=== PATIENT | male | born 1960 | race Caucasian/White ===

== ENCOUNTER 2023-10-26 15:51 | Inpatient (IN) ==
[2023-10-26] MEDS: Iodixanol (CONTRAST) 320 MG/ML 100 ML SDV IV ONE (16:14)
[2023-10-26 16:24] LABS: ABS Basophils 0.1 10^3/uL (0.0-0.1); ABS Monocytes 0.8 10^3/uL (0.0-1.1); ABS Neutrophils 8.5 10^3/uL (1.5-7.6); ABS Nucleated RBC 0.01 10^3/ul; Eosinophil % 0.3 %; Hematocrit 37.5 % (38-53); Hemoglobin 11.2 g/dL (13.2-16.3); Lymphocyte % 9.2 %; Mean Corpuscular Hemoglobin 20.3 pg (27-33); Mean Corpuscular Hgb Conc 29.8 g/dL (31-36); Mean Corpuscular Volume 68.2 fL (80-97); Mean Platelet Volume 8.5 fL (7.5-11.2); Platelet Count 455 10^3/uL (150-450); Red Cell Distribution Width 18.7 % (12-17); White Blood Count 10.4 10^3/uL (3.6-10.2)
[2023-10-26 16:31] LABS: Activated Partial Thrombo Time 30.2 seconds (26.0-38.0); INR 1.25 (0.83-1.13)
[2023-10-26 16:45] LABS: Albumin 4.6 g/dL (3.2-5.2); Albumin/Globulin Ratio 1.5 (1-3); Creatinine, Serum 1.62 mg/dL (0.67-1.17); Direct Bilirubin 0.2 mg/dL (0.03-0.18); Globulin 3.1 g/dL (2-4); HDL Cholesterol 56.8 mg/dL; Indirect Bilirubin 0.6 mg/dL (0.3-1.0); Potassium 4.8 mmol/L (3.5-5.0); Total Bilirubin 0.8 mg/dL (0.2-1.0); Total Protein 7.7 g/dL (6.4-8.9); eGFR CKD-EPI 47.1 (>60)
[2023-10-26] MEDS: Lactated Ringers 1000 ml BAG 1,000 ML IV ONE (16:56)
[2023-10-26 17:23] LABS: Urine Appearance Turbid; Urine Bilirubin Negative (Negative); Urine Blood 3+ (Negative); Urine Color Yellow; Urine Glucose Negative (Negative); Urine Ketones 2+ (Negative); Urine Nitrite Negative (Negative); Urine Protein 1+ (>=30 mg/dL) (Negative); Urine Specific Gravity 1.024 (1.002-1.030); Urine Urobilinogen Negative (Negative)
[2023-10-26 17:28] LABS: Urine Bacteria Absent /HPF (Absent); Urine Red Blood Cell 3+(>10/hpf) /HPF (0-Trace); Urine Squamous Epithelial Cell Present /HPF (Absent); Urine White Blood Cell Absent /HPF (0-Trace)
[2023-10-26] MEDS ORDERED: Lorazepam PYXIS KEY PRN (17:34)
[2023-10-26] MEDS: LORazepam 2 mg VIAL 1 ml IV PUSH ONE (17:39)
[2023-10-26] MEDS: Enoxaparin 40 MG/0.4 ML SYR SUBCUT SCH (20:23)
[2023-10-26] MEDS: Lactated Ringers 1000 ml BAG 1,000 ML IV SCH (21:50)
[2023-10-27 11:55] LABS: % Iron Saturation 4 % (15-55); .Transferrin 328 mg/dL (203-362); ALT 20 U/L (7-52); AST 24 U/L (13-39); Albumin/Globulin Ratio 1.6 (1-3); Alkaline Phosphatase 92 U/L (35-149); Anion Gap 14 mmol/L (2-16); Blood Urea Nitrogen 34 mg/dL (6-24); CO2 Carbon Dioxide 24 mmol/L (22-32); Calcium 9.2 mg/dL (8.6-10.3); Chloride 110 mmol/L (101-111); Creatinine, Serum 1.21 mg/dL (0.67-1.17); Globulin 2.5 g/dL (2-4); Glucose 82 mg/dL (70-100); Iron < 20 ug/dL (50-212); Magnesium 2.2 mg/dL (1.9-2.7); Potassium 4.4 mmol/L (3.5-5.0); Sodium 148 mmol/L (135-145); Total Bilirubin 0.8 mg/dL (0.2-1.0); Total Iron Binding Capacity 459 mcg/dL (250-450); Total Protein 6.5 g/dL (6.4-8.9); Unsaturated Iron Binding 439 ug/dL; eGFR CKD-EPI 66.9 (>60)
[2023-10-27 12:04] LABS: Hematocrit 37.8 % (38-53); Hemoglobin 10.7 g/dL (13.2-16.3); Mean Corpuscular Hemoglobin 20.4 pg (27-33); Mean Corpuscular Hgb Conc 28.3 g/dL (31-36); Mean Platelet Volume 8.6 fL (7.5-11.2); Platelet Count 340 10^3/uL (150-450); Red Blood Count 5.25 10^6/uL (4.06-5.63); Red Cell Distribution Width 18.9 % (12-17); White Blood Count 8.1 10^3/uL (3.6-10.2)
[2023-10-27 12:24] LABS: ABS Basophils 0.1 10^3/uL (0.0-0.1); ABS Eosinophils 0.1 10^3/uL (0.0-0.5); ABS Lymphocytes 1.3 10^3/uL (1.0-4.8); ABS Neutrophils 5.7 10^3/uL (1.5-7.6); Hypochromasia 3+; Microcytosis 2+
[2023-10-27] MEDS: Furosemide 20 mg/2 ml IV VIAL IV SLOW PU ONE (12:38)
[2023-10-27] MEDS ORDERED: Sulfur Hexaflouride MICROSPHR 25 MG VIAL ONE (13:14)
[2023-10-27 19:00] LABS: ABS Basophils 0.1 10^3/uL (0.0-0.1); ABS Lymphocytes 0.6 10^3/uL (1.0-4.8); ABS Monocytes 0.9 10^3/uL (0.0-1.1); ABS Neutrophils 8.4 10^3/uL (1.5-7.6); ABS Nucleated RBC 0.01 10^3/ul; Eosinophil % 0.4 %; Hematocrit 33.3 % (38-53); Hemoglobin 10.2 g/dL (13.2-16.3); Lymphocyte % 5.5 %; Mean Corpuscular Hemoglobin 20.6 pg (27-33); Mean Corpuscular Hgb Conc 30.6 g/dL (31-36); Mean Corpuscular Volume 67.3 fL (80-97); Mean Platelet Volume 8.5 fL (7.5-11.2); Nucleated Red Blood Cells % 0.1 %/100WBC (0.0-0.8); Platelet Count 403 10^3/uL (150-450); Red Blood Count 4.95 10^6/uL (4.06-5.63); Red Cell Distribution Width 18.4 % (12-17)
[2023-10-27 19:30] LABS: Creatinine, Serum 1.27 mg/dL (0.67-1.17); eGFR CKD-EPI 63.1 (>60)
[2023-10-27] MEDS: Heparin DRIP 25,000 UNITS BAG 25,000 UNITS/250 ML BAG IV SCH (20:16)
[2023-10-28 02:16] LABS: Hematocrit 34.9 % (38-53); Hemoglobin 10.8 g/dL (13.2-16.3)
[2023-10-28] MEDS: Morphine 2 MG/ML SYRINGE IV ONE (02:17)
[2023-10-28] MEDS: Heparin 5000 UNITS/ML 1 mL VIAL IV SCH (03:13)
[2023-10-28 06:34] LABS: ABS Basophils 0.1 10^3/uL (0.0-0.1); ABS Eosinophils 0.1 10^3/uL (0.0-0.5); ABS Lymphocytes 1.1 10^3/uL (1.0-4.8); ABS Monocytes 1.5 10^3/uL (0.0-1.1); ABS Neutrophils 9.5 10^3/uL (1.5-7.6); ABS Nucleated RBC 0.01 10^3/ul; Eosinophil % 0.4 %; Hematocrit 34.7 % (38-53); Hemoglobin 10.4 g/dL (13.2-16.3); Lymphocyte % 9.1 %; Mean Corpuscular Hemoglobin 20.3 pg (27-33); Mean Corpuscular Hgb Conc 29.9 g/dL (31-36); Mean Corpuscular Volume 67.9 fL (80-97); Mean Platelet Volume 8.6 fL (7.5-11.2); Nucleated Red Blood Cells % 0.1 %/100WBC (0.0-0.8); Platelet Count 375 10^3/uL (150-450); Red Cell Distribution Width 18.4 % (12-17); White Blood Count 12.2 10^3/uL (3.6-10.2)
[2023-10-28 07:11] LABS: Calcium 9.1 mg/dL (8.6-10.3); Creatinine, Serum 1.28 mg/dL (0.67-1.17); Magnesium 2.2 mg/dL (1.9-2.7); eGFR CKD-EPI 62.5 (>60)
[2023-10-28 10:33] LABS: Urine Appearance Turbid; Urine Bacteria Absent /HPF (Absent); Urine Bilirubin Negative (Negative); Urine Glucose Negative (Negative); Urine Ketones 2+ (Negative); Urine Nitrite Negative (Negative); Urine Protein 2+ (>=100 mg/dL) (Negative); Urine Red Blood Cell 3+(>10/hpf) /HPF (0-Trace); Urine Specific Gravity >1.050 (1.002-1.030); Urine Urobilinogen Negative (Negative); Urine White Blood Cell 3+(>20/hpf) /HPF (0-Trace)
[2023-10-28 10:40] LABS: Urine Color Brown
[2023-10-28] MEDS: Ferric Gluconate IV 250 MG in NS 0.9% 250 ml 200 ML IVPB ONE (14:35)
[2023-10-28] MEDS: Iohexol 300 (CONTRAST) 10 ML SDV IV ONE (14:38)
[2023-10-28] MEDS: Lidocaine 2% JELLY 6 ML Topical TOPICAL ONE (17:29)
[2023-10-29] MEDS: Morphine 2 MG/ML SYRINGE IV ONE (01:42)
[2023-10-29 06:40] LABS: Calcium 9.2 mg/dL (8.6-10.3); Creatinine, Serum 1.38 mg/dL (0.67-1.17); Phosphorus 4.2 mg/dL (2.5-5.0); eGFR CKD-EPI 57.1 (>60)
[2023-10-29 06:52] LABS: ABS Basophils 0.1 10^3/uL (0.0-0.1); ABS Eosinophils 0.1 10^3/uL (0.0-0.5); ABS Lymphocytes 1.3 10^3/uL (1.0-4.8); ABS Monocytes 1.6 10^3/uL (0.0-1.1); ABS Neutrophils 8.1 10^3/uL (1.5-7.6); ABS Nucleated RBC 0.01 10^3/ul; Anisocytosis 2+; Eosinophil % 0.6 %; Hematocrit 34.2 % (38-53); Hemoglobin 10.5 g/dL (13.2-16.3); Lymphocyte % 11.5 %; Macrocytosis 1+; Mean Corpuscular Hemoglobin 20.6 pg (27-33); Mean Corpuscular Hgb Conc 30.6 g/dL (31-36); Mean Corpuscular Volume 67.5 fL (80-97); Mean Platelet Volume 8.2 fL (7.5-11.2); Microcytosis 1+; Nucleated Red Blood Cells % 0.1 %/100WBC (0.0-0.8); Platelet Count 357 10^3/uL (150-450); Red Blood Count 5.06 10^6/uL (4.06-5.63); Red Cell Distribution Width 18.4 % (12-17); White Blood Count 11.1 10^3/uL (3.6-10.2)
[2023-10-29] MEDS: Ferric Gluconate IV 250 MG in NS 0.9% 250 ml 200 ML IVPB ONE (11:21)
[2023-10-29] MEDS: Lidocaine 2% JELLY 6 ML Topical TOPICAL ONE (15:15)
[2023-10-30 06:03] LABS: Hematocrit 35.9 % (38-53); Hemoglobin 10.4 g/dL (13.2-16.3); Mean Corpuscular Hemoglobin 20.2 pg (27-33); Mean Corpuscular Volume 69.7 fL (80-97); Mean Platelet Volume 8.9 fL (7.5-11.2); Platelet Count 345 10^3/uL (150-450); Red Blood Count 5.15 10^6/uL (4.06-5.63); Red Cell Distribution Width 18.8 % (12-17); White Blood Count 28.2 10^3/uL (3.6-10.2)
[2023-10-30 06:05] LABS: Albumin 3.6 g/dL (3.2-5.2); Albumin/Globulin Ratio 1.4 (1-3); Calcium 9.1 mg/dL (8.6-10.3); Creatinine, Serum 1.38 mg/dL (0.67-1.17); Globulin 2.5 g/dL (2-4); Magnesium 2.6 mg/dL (1.9-2.7); Potassium 3.9 mmol/L (3.5-5.0); Total Bilirubin 0.6 mg/dL (0.2-1.0); Total Protein 6.1 g/dL (6.4-8.9); eGFR CKD-EPI 57.1 (>60)
[2023-10-30 07:27] LABS: ABS Basophils 0.1 10^3/uL (0.0-0.1); ABS Lymphocytes 1.1 10^3/uL (1.0-4.8); ABS Monocytes 1.6 10^3/uL (0.0-1.1); ABS Neutrophils 25.4 10^3/uL (1.5-7.6); ABS Nucleated RBC 0.02 10^3/ul; Eosinophil % 0.1 %; Lymphocyte % 4.1 %; Nucleated Red Blood Cells % 0.1 %/100WBC (0.0-0.8)
[2023-10-30] MEDS ORDERED: Magnesium Hydroxide LIQ 30 ML UDC PO PRN (07:31)
[2023-10-30 07:56] LABS: C Reactive Protein 126.73 mg/L (<8.01)
[2023-10-30] MEDS: cefTRIAXone 1 gm/50 mL D5W 1 GM/50 ML BAG IV SCH (09:48)
[2023-10-30] MEDS: Morphine 2 MG/ML SYRINGE IV ONE (09:57)
[2023-10-30] MEDS: Magnesium Hydroxide LIQ 30 ML UDC PO SCH (10:26)
[2023-10-30] MEDS: Lactated Ringers 1000 ml BAG 1,000 ML IV SCH (10:46)
[2023-10-30] MEDS: Azithromycin 500 mg/250 ml NS 500 MG/250 ML BAG IVPB SCH (10:47)
[2023-10-30] MEDS: Polyethylene Glycol 3350 17 GM PACKET PO PRN (10:50)
[2023-10-30] MEDS: Ferric Gluconate IV 250 MG in NS 0.9% 250 ml 200 ML IVPB ONE (14:05)
[2023-10-30] MEDS: Lactulose 30 ml UDC NG TUBE ONE (14:16)
[2023-10-30] MEDS ORDERED: Ondansetron ODT 4 mg TAB 4 MG TAB SL PRN (16:16)
[2023-10-30] MEDS: Ondansetron ODT 4 mg TAB 4 MG TAB SL ONE (16:43)
[2023-10-30 17:49] LABS: Urine Appearance Extra Turbid; Urine Bilirubin Negative (Negative); Urine Blood 3+ (Negative); Urine Glucose Negative (Negative); Urine Ketones Negative (Negative); Urine Nitrite Negative (Negative); Urine Protein 1+ (>=30 mg/dL) (Negative); Urine Specific Gravity 1.029 (1.002-1.030); Urine Urobilinogen Negative (Negative); Urine pH 5.5 (5.0-8.0)
[2023-10-30 18:01] LABS: Urine Bacteria 1+ /HPF (Absent); Urine Red Blood Cell 3+(>10/hpf) /HPF (0-Trace); Urine White Blood Cell 3+(>20/hpf) /HPF (0-Trace)
[2023-10-30 19:46] LABS: Urine Color Yellow
[2023-10-30] MEDS: Magnesium Hydroxide LIQ 30 ML UDC NG TUBE SCH (21:17)
[2023-10-31 06:53] LABS: ABS Basophils 0.1 10^3/uL (0.0-0.1); ABS Eosinophils 0.7 10^3/uL (0.0-0.5); ABS Lymphocytes 1.5 10^3/uL (1.0-4.8); ABS Monocytes 1.5 10^3/uL (0.0-1.1); ABS Neutrophils 13.2 10^3/uL (1.5-7.6); ABS Nucleated RBC 0.04 10^3/ul; Eosinophil % 3.9 %; Hematocrit 31.9 % (38-53); Hemoglobin 9.4 g/dL (13.2-16.3); Lymphocyte % 9.1 %; Mean Corpuscular Hemoglobin 20.2 pg (27-33); Mean Corpuscular Hgb Conc 29.5 g/dL (31-36); Mean Corpuscular Volume 68.6 fL (80-97); Mean Platelet Volume 9.1 fL (7.5-11.2); Nucleated Red Blood Cells % 0.3 %/100WBC (0.0-0.8); Platelet Count 361 10^3/uL (150-450); Red Blood Count 4.65 10^6/uL (4.06-5.63); Red Cell Distribution Width 18.5 % (12-17)
[2023-10-31 07:03] LABS: Albumin 3.4 g/dL (3.2-5.2); Albumin/Globulin Ratio 1.5 (1-3); C Reactive Protein 138.77 mg/L (<8.01); Calcium 8.7 mg/dL (8.6-10.3); Creatinine, Serum 1.1 mg/dL (0.67-1.17); Globulin 2.3 g/dL (2-4); Magnesium 2.4 mg/dL (1.9-2.7); Potassium 4.1 mmol/L (3.5-5.0); Total Bilirubin 0.5 mg/dL (0.2-1.0); Total Protein 5.7 g/dL (6.4-8.9)
[2023-10-31] MEDS: Ferric Gluconate IV 250 MG in NS 0.9% 250 ml 200 ML IVPB ONE (14:55)
[2023-10-31] MEDS: Morphine 2 MG/ML SYRINGE IV ONE (18:44)
[2023-10-31] MEDS: Iohexol 300 (CONTRAST) 10 ML SDV IV ONE (20:50)
[2023-11-01 06:01] LABS: C Reactive Protein 76.03 mg/L (<8.01); Calcium 8.4 mg/dL (8.6-10.3); Creatinine, Serum 1.07 mg/dL (0.67-1.17); Magnesium 2.2 mg/dL (1.9-2.7); Potassium 4.1 mmol/L (3.5-5.0); eGFR CKD-EPI 77.5 (>60)
[2023-11-01 06:02] LABS: ABS Basophils 0.1 10^3/uL (0.0-0.1); ABS Eosinophils 0.4 10^3/uL (0.0-0.5); ABS Lymphocytes 1.5 10^3/uL (1.0-4.8); ABS Monocytes 1.3 10^3/uL (0.0-1.1); ABS Neutrophils 10.5 10^3/uL (1.5-7.6); ABS Nucleated RBC 0.04 10^3/ul; Eosinophil % 3.1 %; Hematocrit 33.1 % (38-53); Hemoglobin 9.9 g/dL (13.2-16.3); Mean Corpuscular Hemoglobin 20.6 pg (27-33); Mean Corpuscular Hgb Conc 29.9 g/dL (31-36); Mean Corpuscular Volume 68.9 fL (80-97); Mean Platelet Volume 9.2 fL (7.5-11.2); Nucleated Red Blood Cells % 0.3 %/100WBC (0.0-0.8); Platelet Count 346 10^3/uL (150-450); Red Cell Distribution Width 18.8 % (12-17); White Blood Count 13.8 10^3/uL (3.6-10.2)
[2023-11-02] MEDS ORDERED: Lidocaine 4% GEL 10 GM TUBE TOPICAL ONE (03:05)
[2023-11-02] MEDS: Lidocaine 2% JELLY 6 ML Topical TOPICAL ONE (07:18)
[2023-11-02 14:39] LABS: Hematocrit 34.4 % (38-53); Hemoglobin 10.3 g/dL (13.2-16.3); Mean Corpuscular Hemoglobin 21.1 pg (27-33); Mean Corpuscular Volume 70.3 fL (80-97); Mean Platelet Volume 9.4 fL (7.5-11.2); Platelet Count 366 10^3/uL (150-450); Red Blood Count 4.89 10^6/uL (4.06-5.63); Red Cell Distribution Width 18.9 % (12-17); White Blood Count 10.1 10^3/uL (3.6-10.2)
[2023-11-02 14:40] LABS: INR 1.22 (0.83-1.13)
[2023-11-02 16:30] LABS: ABS Basophils 0.1 10^3/uL (0.0-0.1); ABS Eosinophils 0.3 10^3/uL (0.0-0.5); ABS Lymphocytes 1.7 10^3/uL (1.0-4.8); ABS Monocytes 1.2 10^3/uL (0.0-1.1); ABS Neutrophils 6.8 10^3/uL (1.5-7.6); ABS Nucleated RBC 0.02 10^3/ul; Eosinophil % 3.3 %; Lymphocyte % 16.5 %; Nucleated Red Blood Cells % 0.1 %/100WBC (0.0-0.8)
[2023-11-03 06:41] LABS: Calcium 8.7 mg/dL (8.6-10.3); Creatinine, Serum 1.05 mg/dL (0.67-1.17); Magnesium 2.2 mg/dL (1.9-2.7); Potassium 4.9 mmol/L (3.5-5.0); eGFR CKD-EPI 79.3 (>60)
[2023-11-03 06:55] LABS: ABS Basophils 0.1 10^3/uL (0.0-0.1); ABS Eosinophils 0.5 10^3/uL (0.0-0.5); ABS Lymphocytes 1.4 10^3/uL (1.0-4.8); ABS Monocytes 1.3 10^3/uL (0.0-1.1); ABS Neutrophils 7.1 10^3/uL (1.5-7.6); ABS Nucleated RBC 0.02 10^3/ul; Eosinophil % 4.7 %; Hematocrit 33.5 % (38-53); Hemoglobin 10.4 g/dL (13.2-16.3); Lymphocyte % 13.1 %; Mean Corpuscular Hemoglobin 21.5 pg (27-33); Mean Corpuscular Volume 69.3 fL (80-97); Mean Platelet Volume 9.4 fL (7.5-11.2); Nucleated Red Blood Cells % 0.2 %/100WBC (0.0-0.8); Platelet Count 354 10^3/uL (150-450); Red Blood Count 4.83 10^6/uL (4.06-5.63); Red Cell Distribution Width 18.1 % (12-17); White Blood Count 10.5 10^3/uL (3.6-10.2)
[2023-11-04] MEDS: Senna TAB 8.6 mg TAB PO PRN (15:56)
[2023-11-04] MEDS: Magnesium Hydroxide LIQ 30 ML UDC NG TUBE PRN (15:56)
[2023-11-05 07:50] LABS: C Reactive Protein 9.85 mg/L (<8.01); Calcium 9.1 mg/dL (8.6-10.3); Creatinine, Serum 1.13 mg/dL (0.67-1.17); Magnesium 2.4 mg/dL (1.9-2.7); Potassium 5.2 mmol/L (3.5-5.0); eGFR CKD-EPI 72.6 (>60)
[2023-11-05 07:58] LABS: Hematocrit 37.6 % (38-53); Hemoglobin 11.4 g/dL (13.2-16.3); Mean Corpuscular Hemoglobin 21.7 pg (27-33); Mean Corpuscular Hgb Conc 30.3 g/dL (31-36); Mean Corpuscular Volume 71.5 fL (80-97); Red Blood Count 5.26 10^6/uL (4.06-5.63); Red Cell Distribution Width 18.9 % (12-17); White Blood Count 10.9 10^3/uL (3.6-10.2)
[2023-11-05 09:05] LABS: ABS Basophils 0.1 10^3/uL (0.0-0.1); ABS Eosinophils 0.3 10^3/uL (0.0-0.5); ABS Lymphocytes 1.7 10^3/uL (1.0-4.8); ABS Monocytes 1.3 10^3/uL (0.0-1.1); ABS Neutrophils 7.4 10^3/uL (1.5-7.6); ABS Nucleated RBC 0.02 10^3/ul; Lymphocyte % 15.7 %; Nucleated Red Blood Cells % 0.1 %/100WBC (0.0-0.8); Platelet Count Platelets clumped. 10^3/uL (150-450)
[2023-11-06 07:43] LABS: Calcium 8.9 mg/dL (8.6-10.3); Creatinine, Serum 1.28 mg/dL (0.67-1.17); Magnesium 2.5 mg/dL (1.9-2.7); Potassium 5.2 mmol/L (3.5-5.0); eGFR CKD-EPI 62.5 (>60)
[2023-11-06] MEDS: SODIUM ZIRCONIUM CYCLOSILICATE 5 GM PACKET PO ONE (10:17)
[2023-11-06] MEDS: SODIUM ZIRCONIUM CYCLOSILICATE 5 GM PACKET PO SCH (10:20)
[2023-11-07 05:42] LABS: Calcium 8.6 mg/dL (8.6-10.3); Creatinine, Serum 1.16 mg/dL (0.67-1.17); Magnesium 2.3 mg/dL (1.9-2.7); Phosphorus 3.7 mg/dL (2.5-5.0); Potassium 4.7 mmol/L (3.5-5.0); eGFR CKD-EPI 70.3 (>60)
[2023-11-07 05:43] LABS: ABS Basophils 0.1 10^3/uL (0.0-0.1); ABS Eosinophils 0.3 10^3/uL (0.0-0.5); ABS Lymphocytes 1.4 10^3/uL (1.0-4.8); ABS Monocytes 1.3 10^3/uL (0.0-1.1); ABS Neutrophils 6.2 10^3/uL (1.5-7.6); Eosinophil % 2.8 %; Hematocrit 34.9 % (38-53); Hemoglobin 10.9 g/dL (13.2-16.3); Lymphocyte % 15.2 %; Mean Corpuscular Hemoglobin 22.1 pg (27-33); Mean Corpuscular Hgb Conc 31.1 g/dL (31-36); Mean Corpuscular Volume 70.9 fL (80-97); Mean Platelet Volume 9.4 fL (7.5-11.2); Platelet Count 386 10^3/uL (150-450); Red Blood Count 4.92 10^6/uL (4.06-5.63); Red Cell Distribution Width 18.8 % (12-17); White Blood Count 9.4 10^3/uL (3.6-10.2)
[2023-11-08 07:45] LABS: ABS Basophils 0.1 10^3/uL (0.0-0.1); ABS Eosinophils 0.2 10^3/uL (0.0-0.5); ABS Lymphocytes 1.3 10^3/uL (1.0-4.8); ABS Monocytes 0.9 10^3/uL (0.0-1.1); ABS Neutrophils 4.4 10^3/uL (1.5-7.6); Eosinophil % 2.7 %; Hematocrit 36.1 % (38-53); Hemoglobin 11.2 g/dL (13.2-16.3); Lymphocyte % 18.8 %; Mean Corpuscular Hemoglobin 22.3 pg (27-33); Mean Corpuscular Hgb Conc 31.1 g/dL (31-36); Mean Corpuscular Volume 71.5 fL (80-97); Mean Platelet Volume 8.7 fL (7.5-11.2); Platelet Count 372 10^3/uL (150-450); Red Blood Count 5.05 10^6/uL (4.06-5.63); Red Cell Distribution Width 19.4 % (12-17); White Blood Count 6.9 10^3/uL (3.6-10.2)
[2023-11-08 08:20] LABS: Calcium 8.8 mg/dL (8.6-10.3); Creatinine, Serum 1.08 mg/dL (0.67-1.17); Magnesium 2.2 mg/dL (1.9-2.7); Potassium 4.9 mmol/L (3.5-5.0); eGFR CKD-EPI 76.6 (>60)
[2023-11-10 06:42] LABS: Hemoglobin 11.5 g/dL (13.2-16.3); Mean Corpuscular Hemoglobin 22.5 pg (27-33); Mean Corpuscular Hgb Conc 31.2 g/dL (31-36); Mean Corpuscular Volume 72.3 fL (80-97); Mean Platelet Volume 9.3 fL (7.5-11.2); Platelet Count 396 10^3/uL (150-450); Red Blood Count 5.11 10^6/uL (4.06-5.63); Red Cell Distribution Width 25.4 % (12-17); White Blood Count 7.6 10^3/uL (3.6-10.2)
[2023-11-10 06:47] LABS: Calcium 8.8 mg/dL (8.6-10.3); Creatinine, Serum 1.09 mg/dL (0.67-1.17); Magnesium 2.1 mg/dL (1.9-2.7); Potassium 4.8 mmol/L (3.5-5.0); eGFR CKD-EPI 75.8 (>60)
[2023-11-10 07:42] LABS: ABS Basophils 0.1 10^3/uL (0.0-0.1); ABS Eosinophils 0.2 10^3/uL (0.0-0.5); ABS Lymphocytes 1.5 10^3/uL (1.0-4.8); ABS Monocytes 0.9 10^3/uL (0.0-1.1); ABS Neutrophils 4.9 10^3/uL (1.5-7.6); ABS Nucleated RBC 0.01 10^3/ul; Anisocytosis 3+; Lymphocyte % 20.4 %; Nucleated Red Blood Cells % 0.2 %/100WBC (0.0-0.8)
[2023-11-11 05:52] LABS: Hematocrit 35.4 % (38-53); Hemoglobin 11.1 g/dL (13.2-16.3); Mean Corpuscular Hemoglobin 22.8 pg (27-33); Mean Corpuscular Hgb Conc 31.5 g/dL (31-36); Mean Corpuscular Volume 72.3 fL (80-97); Mean Platelet Volume 9.4 fL (7.5-11.2); Platelet Count 375 10^3/uL (150-450); Red Blood Count 4.89 10^6/uL (4.06-5.63); Red Cell Distribution Width 26.1 % (12-17); White Blood Count 7.4 10^3/uL (3.6-10.2)
[2023-11-15 10:56] LABS: Urine Appearance Turbid; Urine Bacteria Absent /HPF (Absent); Urine Bilirubin Negative (Negative); Urine Blood 3+ (Negative); Urine Color Yellow; Urine Glucose 4+ (>=1000 mg/dL) (Negative); Urine Ketones Negative (Negative); Urine Nitrite Negative (Negative); Urine Protein 1+ (>=30 mg/dL) (Negative); Urine Red Blood Cell 3+(>10/hpf) /HPF (0-Trace); Urine Specific Gravity 1.034 (1.002-1.030); Urine Urobilinogen Negative (Negative); Urine White Blood Cell 3+(>20/hpf) /HPF (0-Trace); Urine pH 5.5 (5.0-8.0)
[2023-11-15] MEDS: Furosemide 20 mg/2 ml IV VIAL IV SLOW PU ONE (13:45)
[2023-11-15] MEDS: Lactated Ringers 1000 ml BAG 500 ML IV SCH (16:29)
[2023-11-15] MEDS: Furosemide 40 mg/4 ml IV VIAL IV ONE (23:32)
[2023-11-16 06:29] LABS: Hematocrit 32.9 % (38-53); Hemoglobin 10.5 g/dL (13.2-16.3); Mean Corpuscular Hemoglobin 23.6 pg (27-33); Mean Corpuscular Hgb Conc 31.8 g/dL (31-36); Mean Corpuscular Volume 74.1 fL (80-97); Mean Platelet Volume 9.3 fL (7.5-11.2); Platelet Count 331 10^3/uL (150-450); Red Blood Count 4.44 10^6/uL (4.06-5.63); Red Cell Distribution Width 28.6 % (12-17); White Blood Count 6.7 10^3/uL (3.6-10.2)
[2023-11-16 06:46] LABS: ABS Basophils 0.1 10^3/uL (0.0-0.1); ABS Eosinophils 0.2 10^3/uL (0.0-0.5); ABS Lymphocytes 1.2 10^3/uL (1.0-4.8); ABS Monocytes 0.8 10^3/uL (0.0-1.1); ABS Neutrophils 4.3 10^3/uL (1.5-7.6); ABS Nucleated RBC 0.01 10^3/ul; Anisocytosis 2+; Eosinophil % 3.7 %; Lymphocyte % 18.4 %; Microcytosis 1+; Nucleated Red Blood Cells % 0.1 %/100WBC (0.0-0.8); Polychromasia 1+
[2023-11-16 10:08] VITALS: BP 103/57
== END 2023-11-16 13:05 | DRG 45 ==
LOC: EDHOLD 15:51 → ED 15:51 → OBSVTOIN 17:33 → SUATTDRO 17:33 → MED 10-27 09:30
PROVIDERS: ADMIT Internal Medicine; ATTEND Student in an Organized Health Care Education/Training Program

== ENCOUNTER 2023-11-16 08:22 | Inpatient (IN) ==
[2023-11-16] MEDS ORDERED: Senna TAB 8.6 mg TAB PO PRN (14:30)
[2023-11-16] MEDS ORDERED: Magnesium Hydroxide LIQ 30 ML UDC PO PRN (15:05)
[2023-11-17 06:48] LABS: Hematocrit 34.1 % (38-53); Hemoglobin 10.7 g/dL (13.2-16.3); Mean Corpuscular Hemoglobin 23.6 pg (27-33); Mean Corpuscular Hgb Conc 31.4 g/dL (31-36); Mean Corpuscular Volume 75.2 fL (80-97); Mean Platelet Volume 8.5 fL (7.5-11.2); Platelet Count 330 10^3/uL (150-450); Red Blood Count 4.54 10^6/uL (4.06-5.63); Red Cell Distribution Width 29.6 % (12-17); White Blood Count 4.6 10^3/uL (3.6-10.2)
[2023-11-17 07:33] LABS: Albumin 3.2 g/dL (3.2-5.2); Albumin/Globulin Ratio 1.5 (1-3); Calcium 8.6 mg/dL (8.6-10.3); Creatinine, Serum 1.14 mg/dL (0.67-1.17); Globulin 2.2 g/dL (2-4); Potassium 4.6 mmol/L (3.5-5.0); Total Bilirubin 0.4 mg/dL (0.2-1.0); Total Protein 5.4 g/dL (6.4-8.9); eGFR CKD-EPI 71.8 (>60)
[2023-11-17 07:40] LABS: ABS Basophils 0.1 10^3/uL (0.0-0.1); ABS Eosinophils 0.2 10^3/uL (0.0-0.5); ABS Monocytes 0.6 10^3/uL (0.0-1.1); ABS Neutrophils 2.8 10^3/uL (1.5-7.6); ABS Nucleated RBC 0.01 10^3/ul; Anisocytosis 3+; Eosinophil % 3.9 %; Lymphocyte % 22.2 %; Nucleated Red Blood Cells % 0.1 %/100WBC (0.0-0.8)
[2023-11-19] MEDS: Silver Nitrate/Potassium Nitr 1 PAK (1 PAK PER PATIENT) TOPICAL ONE (19:00)
[2023-11-21 06:34] LABS: Hematocrit 33.5 % (38-53); Hemoglobin 10.8 g/dL (13.2-16.3); Mean Corpuscular Hemoglobin 24.3 pg (27-33); Mean Corpuscular Hgb Conc 32.2 g/dL (31-36); Mean Corpuscular Volume 75.3 fL (80-97); Mean Platelet Volume 8.5 fL (7.5-11.2); Platelet Count 271 10^3/uL (150-450); Red Blood Count 4.44 10^6/uL (4.06-5.63); Red Cell Distribution Width 30.2 % (12-17); White Blood Count 7.2 10^3/uL (3.6-10.2)
[2023-11-21 08:30] LABS: ABS Basophils 0.1 10^3/uL (0.0-0.1); ABS Eosinophils 0.2 10^3/uL (0.0-0.5); ABS Lymphocytes 1.6 10^3/uL (1.0-4.8); ABS Neutrophils 4.3 10^3/uL (1.5-7.6); ABS Nucleated RBC 0.02 10^3/ul; Eosinophil % 3.3 %; Lymphocyte % 22.6 %; Nucleated Red Blood Cells % 0.2 %/100WBC (0.0-0.8)
[2023-11-21] MEDS: Bacitracin OINTMENT TUBE TOPICAL SCH (11:39)
[2023-11-21] MEDS: Pancrelipase/Bicarb NG TUBE 1 PREP/5 ML SOL NG TUBE ONE (12:37)
[2023-11-24 07:09] LABS: Albumin/Globulin Ratio 1.3 (1-3); Calcium 8.2 mg/dL (8.6-10.3); Creatinine, Serum 1.01 mg/dL (0.67-1.17); Globulin 2.4 g/dL (2-4); Potassium 4.2 mmol/L (3.5-5.0); Total Bilirubin 0.6 mg/dL (0.2-1.0); Total Protein 5.4 g/dL (6.4-8.9)
[2023-11-24 07:24] LABS: ABS Basophils 0.1 10^3/uL (0.0-0.1); ABS Eosinophils 0.1 10^3/uL (0.0-0.5); ABS Lymphocytes 1.2 10^3/uL (1.0-4.8); ABS Monocytes 1.2 10^3/uL (0.0-1.1); ABS Neutrophils 7.3 10^3/uL (1.5-7.6); ABS Nucleated RBC 0.01 10^3/ul; Anisocytosis 3+; Eosinophil % 1.2 %; Hemoglobin 10.4 g/dL (13.2-16.3); Mean Corpuscular Hemoglobin 24.6 pg (27-33); Mean Corpuscular Hgb Conc 32.5 g/dL (31-36); Mean Corpuscular Volume 75.7 fL (80-97); Mean Platelet Volume 8.8 fL (7.5-11.2); Nucleated Red Blood Cells % 0.1 %/100WBC (0.0-0.8); Platelet Count 218 10^3/uL (150-450); Red Blood Count 4.23 10^6/uL (4.06-5.63); Red Cell Distribution Width 29.5 % (12-17); White Blood Count 9.9 10^3/uL (3.6-10.2)
[2023-12-01 06:55] LABS: Hematocrit 35.5 % (38-53); Hemoglobin 11.4 g/dL (13.2-16.3); Mean Corpuscular Hemoglobin 24.5 pg (27-33); Mean Corpuscular Volume 76.6 fL (80-97); Mean Platelet Volume 7.9 fL (7.5-11.2); Platelet Count 319 10^3/uL (150-450); Red Blood Count 4.64 10^6/uL (4.06-5.63); Red Cell Distribution Width 28.8 % (12-17); White Blood Count 6.6 10^3/uL (3.6-10.2)
[2023-12-01 07:11] LABS: Albumin 3.2 g/dL (3.2-5.2); Albumin/Globulin Ratio 1.3 (1-3); Calcium 8.6 mg/dL (8.6-10.3); Creatinine, Serum 0.95 mg/dL (0.67-1.17); Globulin 2.5 g/dL (2-4); Potassium 4.3 mmol/L (3.5-5.0); Total Bilirubin 0.3 mg/dL (0.2-1.0); Total Protein 5.7 g/dL (6.4-8.9); eGFR CKD-EPI 89.4 (>60)
[2023-12-01 07:50] LABS: ABS Basophils 0.1 10^3/uL (0.0-0.1); ABS Eosinophils 0.2 10^3/uL (0.0-0.5); ABS Lymphocytes 1.5 10^3/uL (1.0-4.8); ABS Monocytes 0.7 10^3/uL (0.0-1.1); ABS Neutrophils 4.1 10^3/uL (1.5-7.6); Anisocytosis 2+; Eosinophil % 3.2 %; Lymphocyte % 22.5 %; Microcytosis 1+; Polychromasia 1+
[2023-12-08 07:01] LABS: Hematocrit 36.9 % (38-53); Hemoglobin 11.9 g/dL (13.2-16.3); Mean Corpuscular Hemoglobin 25.1 pg (27-33); Mean Corpuscular Hgb Conc 32.2 g/dL (31-36); Mean Corpuscular Volume 78.1 fL (80-97); Mean Platelet Volume 8.2 fL (7.5-11.2); Platelet Count 359 10^3/uL (150-450); Red Blood Count 4.73 10^6/uL (4.06-5.63); Red Cell Distribution Width 29.3 % (12-17)
[2023-12-08 07:07] LABS: Albumin 3.3 g/dL (3.2-5.2); Albumin/Globulin Ratio 1.4 (1-3); Calcium 8.9 mg/dL (8.6-10.3); Creatinine, Serum 1.06 mg/dL (0.67-1.17); Globulin 2.3 g/dL (2-4); Potassium 4.7 mmol/L (3.5-5.0); Total Bilirubin 0.4 mg/dL (0.2-1.0); Total Protein 5.6 g/dL (6.4-8.9); eGFR CKD-EPI 78.4 (>60)
[2023-12-08 07:30] LABS: ABS Basophils 0.1 10^3/uL (0.0-0.1); ABS Eosinophils 0.2 10^3/uL (0.0-0.5); ABS Lymphocytes 1.6 10^3/uL (1.0-4.8); ABS Monocytes 0.7 10^3/uL (0.0-1.1); ABS Neutrophils 3.5 10^3/uL (1.5-7.6); Anisocytosis 2+; Microcytosis 1+; Nucleated Red Blood Cells % 0.1 %/100WBC (0.0-0.8)
[2023-12-15 05:44] VITALS: BP 133/72
== END 2023-12-15 13:15 | DRG 45 ==
LOC: PMRU 13:21
PROVIDERS: ADMIT Physical Medicine & Rehabilitation; ATTEND Physical Medicine & Rehabilitation